=== PATIENT | male | born 1990 | race Caucasian/White ===

== ENCOUNTER 2017-11-16 17:40 | Emergency (ER) | payer OTHER ==
--- NOTE | 2017-11-16 18:46 | C.PDOC ---
History Of Present Illness 27 y/o male presents to ED with complains of feeling lump to back of head on left side yesterday. Patient reports today the area feels hard and is tender to touch. Patient denies any fever, injury, discharge, dizziness, vision changes, ear pain or other associated complaints Time Seen by Provider: 11/16/17 18:31 Chief Complaint (Nursing): Headache History Per: Patient History/Exam Limitations: no limitations Onset/Duration Of Symptoms: Days Current Symptoms Are (Timing): Still Present Past Medical History Reviewed: Historical Data, Nursing Documentation, Vital Signs Vital Signs: Last Vital Signs Temp 98.4 F 11/16/17 19:40 Pulse 71 11/16/17 19:40 Resp 16 11/16/17 19:40 BP 116/77 11/16/17 19:40 Pulse Ox 98 11/16/17 19:40 - Medical History PMH: No Chronic Diseases Surgical History: No Surg Hx Family History: States: No Known Family Hx - Social History Hx Alcohol Use: No Hx Substance Use: No - Immunization History Hx Influenza Vaccination: No Hx Pneumococcal Vaccination: No Review Of Systems Constitutional: Negative for: Fever, Chills Eyes: Negative for: Vision Change Gastrointestinal: Negative for: Nausea, Vomiting Skin: Positive for: Other (lump to head) Neurological: Negative for: Weakness, Numbness, Dizziness Physical Exam - Physical Exam Appears: Non-toxic, No Acute Distress Skin: Warm, Dry, No Rash Head: Tenderness (1x1cm erythematous tender indurated mass to left occipital scalp, no pointing, fluctuance), No Abrasion Eye(s): bilateral: PERRL, EOMI Oral Mucosa: Moist Neck: Normal ROM, Supple Cardiovascular: Rhythm Regular Respiratory: Normal Breath Sounds, No Rales, No Rhonchi, No Wheezing Gastrointestinal/Abdominal: Soft, No Tenderness, No Guarding, No Rebound Extremity: Bilateral: Atraumatic Neurological/Psych: Oriented x3, Normal Speech, Normal Cognition, Normal Motor, Normal Sensation ED Course And Treatment O2 Sat by Pulse Oximetry: 97 (RA) Pulse Ox Interpretation: Normal Medical Decision Making Medical Decision Making: Patient with tender mass to left scalp, no h.o trauma. Area is indurated, possible ingrown hair and developing abscess. recommend analgesics and warm compress. Rx given. Disposition Counseled Patient/Family Regarding: Diagnosis, Need For Followup, Rx Given - Disposition Referrals: Olive Ramirez MD [Staff Provider] - Disposition: HOME/ ROUTINE Disposition Time: 18:44 Condition: GOOD Additional Instructions: apply warm compress to area take antibiotic twice a day return in 2-3 days if area increases in size or pain, may need drainage Prescriptions: Sulfamethoxazole/Trimethoprim [Bactrim DS 800 mg-160 mg] 1 tab PO BID #10 tab Instructions: Boil (DC) Forms: [employer] (Belarusian) - POA Present On Arrival: None - Clinical Impression Clinical Impression: Scalp cyst - PA / PRINTING BINDERY ASSISTANT / Resident Statement MD/DO has reviewed & agrees with the documentation as recorded. - Scribe Statement The provider has reviewed the documentation as recorded by the Andreaibmorena Watt All medical record entries made by the Evans were at my direction and personally dictated by me. I have reviewed the chart and agree that the record accurately reflects my personal performance of the history, physical exam, medical decision making, and the department course for this patient. I have also personally directed, reviewed, and agree with the discharge instructions and disposition.
[2017-11-16 19:51] VITALS: BP 116/77; PULSE 71; RESP 16; TEMP 98.4
[2017-11-16 19:56] VITALS: O2SAT 97
== END 2017-11-16 19:40 | disposition home or self-care (01) ==
LOC: C.ER 17:40
DX: L72.8 Other follicular cysts of the skin and subcutaneous tissue (principal)